=== PATIENT | female | born 1975 | race Caucasian/White ===

== ENCOUNTER 2016-08-07 | Outpatient (CLI) | END 2016-08-07 01:32 | disposition critical access hospital (66) | CPT/HCPCS: A0425; A0429 ==

== ENCOUNTER 2016-08-07 01:51 | Emergency (ER) | payer BC, OTHER ==
[2016-08-07] MEDS ORDERED: KETOROLAC 60 MG/2 ML VIAL IM STA (03:42)
[2016-08-07] MEDS ORDERED: KETOROLAC 60 MG/2 ML VIAL ONE (03:46)
== END 2016-08-07 06:22 | disposition home or self-care (01) ==
DX: M54.5 Low back pain (principal)

== ENCOUNTER 2017-01-01 13:59 | Emergency (ER) | payer OTHER ==
--- NOTE | 2017-01-01 15:45 | ED Physician Documentation ---
PD HPI ALTERED MENTAL STATUS - Stated complaint Stated Complaint: WEAKNESS/DIZZY/NAUSEA - Chief complaint Chief Complaint: General - History obtained from History obtained from: Patient - History of Present Illness Timing - onset: How many months ago (1-2) Timing - duration: Months Timing - details: Gradual onset, Waxing and waning Quality / character: Other (feeling lightheaded at times, trouble concentrating. General malaise.) Associated symptoms: Headache (intermittently for couple of weeks, mostly frontal.). No: Fever Contributing factors: No: Anticoagulated, Diabetic, Recent med change (does not take any regularly, just supplements of regular dose vitamins. Is finishing her vitamins still.), Recent illness, Recent injury Basline status: Alert and oriented X 3, Ambulatory Similar symptoms before: Has not had sx before Review of Systems Constitutional: reports: Myalgias, Fatigue. denies: Fever, Chills Nose: reports: Sinus pressure / pain (frontal area). denies: Rhinorrhea / runny nose, Congestion Throat: denies: Sore throat, Swollen tonsils Cardiac: denies: Chest pain / pressure, Palpitations Respiratory: denies: Dyspnea, Cough, Wheezing GI: reports: Nausea. denies: Abdominal Pain, Vomiting, Diarrhea : denies: Dysuria, Frequency Skin: denies: Rash, Lesions Neurologic: reports: Generalized weakness, Numbness (intermittent tingling in both arms/hands. Notes decreased sense of taste and smell.), Headache. denies: Focal weakness, Syncope, Head injury Psychiatric: denies: Depressed, Anxiety, Insomnia Endocrine: denies: Weight loss, Weight gain Immunocompromised: denies: Immunocompromised PD PAST MEDICAL HISTORY - Past Medical History Cardiovascular: None Respiratory: None Neuro: None Endocrine/Autoimmune: None - Past Surgical History Past Surgical History: No - Present Medications Home Medications: Ambulatory Orders Medication Instructions Recorded Confirmed Ondansetron HCl [Zofran] 4 mg PO Q6H PRN #20 tablet 01/01/17 - Allergies Allergies/Adverse Reactions: Allergies Allergy/AdvReac Type Severity Reaction Status Date / Time Penicillins AdvReac Mild Rash Verified 01/01/17 14:05 - Social History Does the pt smoke?: No Smoking Status: Never smoker Does the pt drink ETOH?: Yes Does the pt have substance abuse?: No - Immunizations Immunizations are current?: Yes PD ED PE NORMAL - Vitals Vital signs reviewed: Yes - General General: Alert and oriented X 3, No acute distress, Well developed/nourished - HEENT HEENT: Atraumatic, PERRL, EOMI, Ears normal, Pharynx benign - Neck Neck: Supple, no meningeal sign, No adenopathy - Cardiac Cardiac: RRR, No murmur - Respiratory Respiratory: Clear bilaterally - Abdomen Abdomen: Soft, Non tender - Female Female : Deferred - Rectal Rectal: Deferred - Back Back: No CVA TTP - Derm Derm: Normal color, Warm and dry, No rash - Extremities Extremities: No tenderness to palpate, Normal ROM s pain, No edema, No calf tenderness / cord - Neuro Neuro: Alert and oriented X 3, rubber compounder formulator 2-12 intact, No motor deficit, No sensory deficit, Normal speech, Other - Psych Psych: Normal mood, Normal affect Results - Vitals Vitals: Vital Signs - 24 hr 01/01/17 01/01/17 14:02 16:20 Temperature 36.5 C Heart Rate 86 68 Respiratory 18 18 Rate Blood Pressure 121/77 130/83 H O2 Saturation 99 100 Oxygen O2 Source Room air - Labs Labs: Laboratory Tests 01/01/17 01/01/17 01/01/17 14:10 16:55 16:55 WBC 5.2 RBC 4.30 Hgb 13.4 Hct 39.3 MCV 91.4 MCH 31.2 H MCHC 34.1 RDW 12.7 Plt Count 170 MPV 7.7 L Neut # 3.3 Lymph # 1.5 [place] # 0.3 Eos # 0.1 Baso # 0.1 Absolute Nucleated RBC 0.00 Nucleated RBCs 0.0 ESR Sodium 140 Potassium 3.6 Chloride 105 Carbon Dioxide 27 Anion Gap 8.0 BUN 13 Creatinine 0.8 Estimated GFR (MDRD) 80 L Glucose 101 H Calcium 9.3 Magnesium 1.8 Total Bilirubin 0.9 AST 21 ALT 16 Alkaline Phosphatase 47 C-Reactive Protein < 1.0 Total Protein 6.8 Albumin 4.9 Globulin 1.9 L Albumin/Globulin Ratio 2.6 H Lipase 37 TSH Urine Color LIGHT YELLOW Urine Clarity CLEAR Urine pH 6.0 Ur Specific [place] <=1.005 Urine Protein NEGATIVE Urine Glucose (UA) NEGATIVE Urine Ketones NEGATIVE Urine Occult Blood NEGATIVE Urine Nitrite NEGATIVE Urine Bilirubin NEGATIVE Urine Urobilinogen 0.2 (NORMAL) Ur Leukocyte Esterase NEGATIVE Ur Microscopic Review NOT INDICATED Urine Culture Comments NOT INDICATED Urine HCG, Qual NEGATIVE 01/01/17 01/01/17 16:55 16:55 WBC RBC Hgb Hct MCV MCH MCHC RDW Plt Count MPV Neut # Lymph # [place] # Eos # Baso # Absolute Nucleated RBC Nucleated RBCs ESR 1 Sodium Potassium Chloride Carbon Dioxide Anion Gap BUN Creatinine Estimated GFR (MDRD) Glucose Calcium Magnesium Total Bilirubin AST ALT Alkaline Phosphatase C-Reactive Protein Total Protein Albumin Globulin Albumin/Globulin Ratio Lipase TSH 1.34 Urine Color Urine Clarity Urine pH Ur Specific [place] Urine Protein Urine Glucose (UA) Urine Ketones Urine Occult Blood Urine Nitrite Urine Bilirubin Urine Urobilinogen Ur Leukocyte Esterase Ur Microscopic Review Urine Culture Comments Urine HCG, Qual - Rads (name of study) head CT Radiology: Prelim report reviewed (no acute process) PD MEDICAL DECISION MAKING - ED course Complexity details: reviewed results, considered differential (not sure cause of symptoms. She is well post- over a year, so onset of depression would seem less likely. Has 4 kids at home, so tired makes sense, but has dealt with kids awhile and thus just fatigue would not be as likely. ), d/w patient, d/w family (spouse) Departure - Departure Disposition: Home, Self Care Clinical Impression: Numbness and tingling Fatigue Qualifiers: Fatigue type: unspecified Qualified Code(s): R53.83 - Other fatigue Condition: Stable Record reviewed to determine appropriate education?: Yes Instructions: ED Weakness [facility]O Prescriptions: Ondansetron HCl [Zofran] 4 mg PO Q6H PRN #20 tablet PRN Reason: Nausea / Vomiting Comments: Your basic labs are looking good (I just don't have the thyroid test back yet). Head scan is normal too. I don't have obvious answer to the symptoms as yet, but several things are off the list, so to speak. Follow up PMD next week. Zofran if needed for nausea. Discharge Date/Time: 01/01/17 17:46
[2017-01-01 16:21] VITALS: BP 130/83
[2017-01-01 16:36] LABS: BILIRUBIN,URINE NEGATIVE (NEGATIVE)
[2017-01-01 16:38] LABS: HCG UR QUAL NEGATIVE; UA CHARGE (STRIP ONLY) YES; UR CULTURE IF IND NOT INDICATED
[2017-01-01 17:10] LABS: BASOPHILS # (AUTO) 0.1 10^3/uL (0.0-0.1); BASOPHILS % (AUTO) 1.2 %; EOSINOPHILS # (AUTO) 0.1 10^3/uL (0.0-0.7); HCT - HEMATOCRIT 39.3 % (37.0-47.0); HGB - HEMOGLOBIN 13.4 g/dL (12.0-16.0); LYMPHOCYTES # (AUTO) 1.5 10^3/uL (1.5-3.5); LYMPHOCYTES % (AUTO) 27.7 %; MEAN CORPUSCULAR HEMOGLOBIN 31.2 pg (27.0-31.0); MEAN CORPUSCULAR HGB CONC 34.1 g/dL (32.0-36.0); MEAN CORPUSCULAR VOLUME 91.4 fL (81.0-99.0); MEAN PLATELET VOLUME 7.7 fL (7.9-10.8); MONOCYTES # (AUTO) 0.3 10^3/uL (0.0-1.0); MONOCYTES % (AUTO) 5.2 %; NEUTROPHILS # (AUTO) 3.3 10^3/uL (1.5-6.6); NEUTROPHILS % (AUTO) 63.9 %; RED CELL DISTRIBUTION WIDTH 12.7 % (12.0-15.0); UNCORRECTED WHITE BLOOD COUNT 5.2 x10^3/uL; WHITE BLOOD COUNT 5.2 x10^3/uL (4.8-10.8)
--- NOTE | 2017-01-01 17:10 | CT Preliminary Report ---
Exam: CT Head W/O IMPRESSION: Normal head CT. [facility] SITE ID: [id number]
--- NOTE | 2017-01-01 17:12 | CT Report ---
EXAM: CT HEAD EXAM DATE: 01/01/2017 04:48 PM. CLINICAL HISTORY: Headache and visual changes/numbness. COMPARISON: None. TECHNIQUE: Multiaxial CT images were obtained from the foramen magnum to the vertex. IV contrast: Non e. Reformats: Coronal. In accordance with CT protocol optimization, one or more of the following dose reduction techniques w ere utilized for this exam: automated exposure control, adjustment of mA and/or KV based on patient s ize, or use of iterative reconstructive technique. FINDINGS: Parenchyma: No intraparenchymal hemorrhage. No evidence of mass, midline shift, or CT findings of inf arction. Harmon-white differentiation is distinct. Extraaxial Spaces: Normal for age. No subdural or epidural collections identified. Ventricles: Normal in size and position. Sinuses: Imaged paranasal sinuses, orbits, and mastoids show no significant abnormality. Bones: No evidence of fracture or calvarial defect. Other: None. IMPRESSION: Normal head CT. [facility] Referring Provider Line: [phone] SITE ID: [id number]
[2017-01-01 17:27] LABS: ALBUMIN/GLOBULIN RATIO 2.6 (1.0-2.2); BILIRUBIN,TOTAL 0.9 mg/dL (0.2-1.0); BUN - BLOOD UREA NITROGEN 13 mg/dL (6-20); CALCIUM 9.3 mg/dL (8.5-10.3); CARBON DIOXIDE - CO2 27 mmol/L (21-32); CHLORIDE 105 mmol/L (101-111); CREATININE 0.8 mg/dL (0.4-1.0); GFR - MDRD 80 (>89); GLUCOSE 101 mg/dL (70-100); LIPASE 37 U/L (22-51); MAGNESIUM 1.8 mg/dL (1.7-2.8); POTASSIUM 3.6 mmol/L (3.5-5.0); SODIUM 140 mmol/L (135-145); TOTAL PROTEIN 6.8 g/dL (6.7-8.2)
== END 2017-01-01 17:46 | disposition home or self-care (01) ==
LOC: ED 13:59
DX: R20.0 Anesthesia of skin (principal); R20.2 Paresthesia of skin; R53.83 Other fatigue; R51 Headache; R11.0 Nausea
CPT/HCPCS: 36415; 70450; 80053; 81001; 81003; 81025; 83690; 83735; 84443; 85025; 85651; 86140; 87086; 99283

== ENCOUNTER 2017-01-15 09:21 | Outpatient (CLI) | payer OTHER ==
--- NOTE | 2017-01-15 10:38 | MRI Report ---
EXAM: MRI BRAIN WITHOUT CONTRAST EXAM DATE: 01/15/2017 10:10 AM. CLINICAL HISTORY: NUMBNESS AND TINGLING IN LEFT ARM. COMPARISON: CT head 01/01/2017. TECHNIQUE: Multiplanar, multisequence T1-weighted and fluid-sensitive MR sequences of the brain were performed. Sequences optimized for routine evaluation. Other: None. IV Contrast: None. FINDINGS: Brain Volume: Normal for age. Parenchyma/Dura: No masses, infarcts, or hemorrhage. No white matter lesions identified. Ventricles/Cisterns: Normal. No hydrocephalus. Sinuses: Mild mucosal of thickening of the ethmoid air cells. Remaining visualized paranasal sinuses, mastoid air cells, middle ear cavities are clear. Orbits: Unremarkable Bones: Normal. Other: Visualized major intracranial flow voids are maintained IMPRESSION: 1. No acute infarct, intracranial hemorrhage, mass, or hydrocephalus. 2. No definite white matter lesions seen. [facility] Referring Provider Line: [phone] SITE ID: [id number]
== END 2017-01-15 09:22 | disposition home or self-care (01) ==
LOC: DI 09:21
PROVIDERS: ATTEND Family Medicine
DX: R20.0 Anesthesia of skin (principal)
CPT/HCPCS: 70551

== ENCOUNTER 2017-06-10 13:20 | Outpatient (CLI) | payer BC, OTHER ==
[2017-06-12 12:01] LABS: TEST RESULT REPORT
== END 2017-06-10 13:21 | disposition home or self-care (01) ==
LOC: LAB.WCP 13:20
PROVIDERS: ATTEND Family Medicine
DX: K11.20 Sialoadenitis, unspecified (principal)
CPT/HCPCS: 36415; 81599; 86235; 86735

== ENCOUNTER 2017-10-30 12:57 | Outpatient (CLI) | payer BC ==
--- NOTE | 2017-10-30 13:49 | Mammography Report ---
DIAGNOSTIC BILATERAL MAMMOGRAM: 10/30/2017 CLINICAL INDICATION: Left lateral breast pain. TECHNIQUE: Bilateral CC, laterally exaggerated CC, MLO, left true lateral views. The patient described the pain as diffuse throughout the lateral half of the breast, so no marker was placed. This is the patient's baseline examination. FINDINGS: The breasts demonstrate heterogeneously dense fibroglandular parenchyma bilaterally. Coarse and punctate, typically benign calcifications are present. No suspicious masses, clustered microcalcifications, or regions of architectural distortion are identified. IMPRESSION: BENIGN FINDINGS. RECOMMENDATION: Routine annual screening unless otherwise clinically indicated. BIRADS CATEGORY 2 - BENIGN FINDINGS. STANDARD QUALIFYING STATEMENTS: 1. This examination was reviewed with the aid of Computer-Aided Detection (CAD). 2. A negative or benign imaging report should not delay biopsy if clinically suspicious findings are present. Consider surgical consultation if warranted. More than 5% of cancers are not identified by imaging. 3. Dense breasts may obscure an underlying neoplasm. TD: 10/30/2017 13:48
== END 2017-10-30 12:58 | disposition home or self-care (01) ==
LOC: DI 12:57
PROVIDERS: ATTEND Obstetrics & Gynecology
DX: N64.4 Mastodynia (principal)
CPT/HCPCS: 77066

== ENCOUNTER 2018-01-22 08:00 | Outpatient (CLI) | payer BC | END 2018-01-22 08:01 | disposition home or self-care (01) | LOC: LAB.R 08:00 | PROVIDERS: ATTEND Obstetrics & Gynecology | DX: Z11.3 Encounter for screening for infections with a predominantly sexual mode of transmission (principal) | CPT/HCPCS: 87491; 87591 ==

== ENCOUNTER 2018-08-25 08:00 | Outpatient (CLI) | payer BC | END 2018-08-25 23:59 | disposition home or self-care (01) | LOC: LAB.R 08:00 | PROVIDERS: ATTEND Obstetrics & Gynecology | DX: R10.2 Pelvic and perineal pain (principal); N92.4 Excessive bleeding in the premenopausal period | CPT/HCPCS: 87491; 87591 ==

== ENCOUNTER 2019-01-20 11:28 | Outpatient (CLI) | payer BC ==
[2019-01-20 18:35] LABS: BASOPHILS # (AUTO) 0.1 10^3/uL (0.0-0.1); BASOPHILS % (AUTO) 1.4 %; EOSINOPHILS # (AUTO) 0.1 10^3/uL (0.0-0.7); EOSINOPHILS % (AUTO) 2.8 %; HGB - HEMOGLOBIN 11.9 g/dL (12.0-16.0); LYMPHOCYTES # (AUTO) 1.2 10^3/uL (1.5-3.5); LYMPHOCYTES % (AUTO) 33.6 %; MEAN CORPUSCULAR HGB CONC 31.3 g/dL (32.0-36.0); MEAN CORPUSCULAR VOLUME 95.7 fL (81.0-99.0); MEAN PLATELET VOLUME 10.6 fL (7.9-10.8); MONOCYTES # (AUTO) 0.3 10^3/uL (0.0-1.0); MONOCYTES % (AUTO) 8.1 %; NEUTROPHILS # (AUTO) 1.9 10^3/uL (1.5-6.6); NEUTROPHILS % (AUTO) 53.8 %; PLT - PLATELET COUNT 207 10^3/uL (130-450); RED BLOOD COUNT 3.97 10^6/uL (4.20-5.40); RED CELL DISTRIBUTION WIDTH 12.3 % (12.0-15.0); WHITE BLOOD COUNT 3.6 x10^3/uL (4.8-10.8)
[2019-01-20 18:54] LABS: ALBUMIN 4.2 g/dL (3.2-5.5); ALBUMIN/GLOBULIN RATIO 1.8 (1.0-2.2); BILIRUBIN,TOTAL 0.8 mg/dL (0.2-1.0); CALCIUM 9.5 mg/dL (8.5-10.3); CREATININE 0.9 mg/dL (0.4-1.0); TOTAL PROTEIN 6.5 g/dL (6.7-8.2)
[2019-01-20 18:56] LABS: HB2 TOTAL 12.2 g/dL; HEMOGLOBIN A1C 0.45 g/dL; HEMOGLOBIN A1C % 5.5 % (4.6-6.2)
== END 2019-01-20 11:29 | disposition home or self-care (01) ==
LOC: LAB.WCP 11:28
PROVIDERS: ATTEND Physician Assistant
DX: Z00.00 Encounter for general adult medical examination without abnormal findings (principal); R20.2 Paresthesia of skin
CPT/HCPCS: 36415; 80053; 82607; 83036; 84443; 85025

== ENCOUNTER 2019-01-21 18:00 | Outpatient (CLI) | payer BC ==
--- NOTE | 2019-01-22 06:29 | Ultrasound Report ---
Reason: RAYNAUD'S SYNDROME Procedure Date: 01/21/2019 Accession Number: [id number] / [id number] Procedure: US - Ankle Brachial Index CPT Code: FULL RESULT: EXAM: BILATERAL ANKLE/BRACHIAL INDEX EXAM DATE: 01/21/2019 06:53 PM. CLINICAL HISTORY: RAYNAUD'S SYNDROME. COMPARISON: None. TECHNIQUE: A blood pressure cuff and pulse volume recording Doppler ultrasound was used to evaluate the arterial pressures in the arms and ankle. No images were acquired. FINDINGS: Right brachial pressure 96. Left brachial pressure 104. Right ankle pressure 121. Left ankle pressure 117. IMPRESSION: 1. Right ankle/brachial index: 1.2. 2. Left ankle/brachial index: 1.1. ANKLE/BRACHIAL INDEX REFERENCE STANDARDS 1.0-1.4: Normal 0.90-0.99: Borderline < 0.9: Abnormal [facility]
== END 2019-01-21 18:01 | disposition home or self-care (01) ==
LOC: DI 18:00
PROVIDERS: ATTEND Physician Assistant
DX: I73.00 Raynaud's syndrome without gangrene (principal)
CPT/HCPCS: 93922

== ENCOUNTER 2019-03-31 08:30 | Outpatient (CLI) | payer BC ==
--- NOTE | 2019-03-31 13:56 | Ultrasound Report ---
Reason: ABDOMINAL PAIN, RLQ Procedure Date: 03/31/2019 Accession Number: [id number] / [id number] Procedure: US - Abdomen Complete CPT Code: FULL RESULT: EXAM: ABDOMEN ULTRASOUND EXAM DATE: 03/31/2019 09:18 AM. CLINICAL HISTORY: Right lower quadrant abdominal pain. COMPARISON: None. TECHNIQUE: Real-time scanning was performed with static images obtained. FINDINGS: Liver: Liver is mildly echogenic diffusely. No evidence for cirrhosis or mass lesion. 13.6 cm. Main portal vein flow: Hepatopetal. Gallbladder: Normal. No stones, wall thickening, or sonographic Chappell's sign. Biliary System: Common bile duct measures 2 mm. No intrahepatic or extrahepatic ductal dilatation. Pancreas: Visualized portion is unremarkable. Kidneys: Right: 9.9 cm longitudinally. Normal. No contour-deforming mass, stones, or hydronephrosis. Left: 10.7 cm longitudinally. Normal. No contour-deforming mass, stones, or hydronephrosis. Spleen: 9.9 cm. Normal in size and echotexture. Aorta and Inferior Vena Cava: Unremarkable. Other: None. IMPRESSION: 1. Mild fatty infiltrated liver. 2. New etiology for abdominal pain identified. Normal gallbladder. [facility]
== END 2019-03-31 08:31 | disposition home or self-care (01) ==
LOC: DI 08:30
PROVIDERS: ATTEND Surgery
DX: R10.31 Right lower quadrant pain (principal); K76.0 Fatty (change of) liver, not elsewhere classified
CPT/HCPCS: 76700

== ENCOUNTER 2019-09-09 07:00 | Outpatient (CLI) | payer BC, OTHER ==
[2019-09-09 12:34] LABS: BASOPHILS % (AUTO) 1.3 %; EOSINOPHILS # (AUTO) 0.1 10^3/uL (0.0-0.7); EOSINOPHILS % (AUTO) 2.9 %; HGB - HEMOGLOBIN 11.5 g/dL (12.0-16.0); LYMPHOCYTES # (AUTO) 1.5 10^3/uL (1.5-3.5); LYMPHOCYTES % (AUTO) 47.3 %; MEAN CORPUSCULAR HEMOGLOBIN 29.9 pg (27.0-31.0); MEAN CORPUSCULAR HGB CONC 31.3 g/dL (32.0-36.0); MEAN CORPUSCULAR VOLUME 95.3 fL (81.0-99.0); MEAN PLATELET VOLUME 10.4 fL (7.9-10.8); MONOCYTES # (AUTO) 0.3 10^3/uL (0.0-1.0); MONOCYTES % (AUTO) 9.3 %; NEUTROPHILS # (AUTO) 1.2 10^3/uL (1.5-6.6); NEUTROPHILS % (AUTO) 39.2 %; PLT - PLATELET COUNT 160 10^3/uL (130-450); RED BLOOD COUNT 3.85 10^6/uL (4.20-5.40); RED CELL DISTRIBUTION WIDTH 12.5 % (12.0-15.0); WHITE BLOOD COUNT 3.1 x10^3/uL (4.8-10.8)
[2019-09-09 12:59] LABS: ALBUMIN 3.9 g/dL (3.2-5.5); ALBUMIN/GLOBULIN RATIO 1.8 (1.0-2.2); ALKALINE PHOSPHATASE 32 IU/L (42-121); ALT ALANINE AMINOTRANSFERASE 14 IU/L (10-60); AST ASPARTATE AMINOTRANSFERASE 18 IU/L (10-42); BILIRUBIN,TOTAL 0.6 mg/dL (0.2-1.0); BUN - BLOOD UREA NITROGEN 10 mg/dL (6-20); CALCIUM 8.9 mg/dL (8.5-10.3); CARBON DIOXIDE - CO2 27 mmol/L (21-32); CHLORIDE 104 mmol/L (101-111); CHOLESTEROL 264 mg/dL; CREATININE 0.9 mg/dL (0.4-1.0); GFR - MDRD 69 (>89); GLUCOSE 94 mg/dL (70-100); HDL CHOLESTEROL 89 mg/dL; SODIUM 139 mmol/L (135-145); TOTAL PROTEIN 6.1 g/dL (6.7-8.2)
== END 2019-09-09 23:59 | disposition home or self-care (01) ==
LOC: LAB.WCP 07:00
PROVIDERS: ATTEND Family Medicine
DX: Z00.00 Encounter for general adult medical examination without abnormal findings (principal)
CPT/HCPCS: 36415; 80053; 80061; 83721; 84443; 85025

== ENCOUNTER 2019-10-12 08:14 | Outpatient (CLI) | payer OTHER ==
--- NOTE | 2019-10-12 16:00 | Mammography Report ---
Reason: ROUTINE MAMMO Procedure Date: 10/12/2019 Accession Number: [id number] / [id number] Procedure: MGN - Screening Mammo w/Paul CPT Code: Final Report FULL RESULT: EXAM: Screening Mammo w/Paul DATE: 10/12/2019 8:51 AM CLINICAL HISTORY: Screening encounter. History of late childbearing. TECHNIQUE: (B) - Bilateral CC, laterally exaggerated CC, MLO views were obtained. COMPARISON: 10/30/2017. PARENCHYMAL PATTERN: (D) - The breast(s) demonstrate(s) heterogeneously dense fibroglandular parenchyma. FINDINGS: There are no suspicious masses, calcifications, or areas of distortion. IMPRESSION: Negative examination. BI-RADS category 1. RECOMMENDATION: (ANNUAL) - Recommend routine annual screening mammography. BI-RADS CATEGORY: (1) - Negative. STANDARD QUALIFYING STATEMENTS: 1. This examination was not reviewed with the aid of Computer-Aided Detection (CAD). 2. A negative or benign imaging report should not preclude biopsy if clinically suspicious findings are present. 3. Dense breasts may obscure an underlying neoplasm. 4. This examination was reviewed with the aid of 3D breast imaging (tomosynthesis).
== END 2019-10-12 08:15 | disposition home or self-care (01) ==
LOC: DI.N 08:14
DX: Z12.31 Encounter for screening mammogram for malignant neoplasm of breast (principal)
CPT/HCPCS: 77063; 77067

== ENCOUNTER 2019-12-09 08:00 | Outpatient (CLI) | payer OTHER ==
[2019-12-09 13:12] LABS: BASOPHILS # (AUTO) 0.1 10^3/uL (0.0-0.1); BASOPHILS % (AUTO) 1.7 %; EOSINOPHILS # (AUTO) 0.1 10^3/uL (0.0-0.7); HGB - HEMOGLOBIN 12.5 g/dL (12.0-16.0); LYMPHOCYTES # (AUTO) 1.4 10^3/uL (1.5-3.5); LYMPHOCYTES % (AUTO) 45.5 %; MEAN CORPUSCULAR HEMOGLOBIN 29.8 pg (27.0-31.0); MEAN CORPUSCULAR HGB CONC 31.8 g/dL (32.0-36.0); MEAN CORPUSCULAR VOLUME 93.8 fL (81.0-99.0); MEAN PLATELET VOLUME 10.7 fL (7.9-10.8); MONOCYTES # (AUTO) 0.4 10^3/uL (0.0-1.0); NEUTROPHILS # (AUTO) 1.1 10^3/uL (1.5-6.6); NEUTROPHILS % (AUTO) 37.8 %; PLT - PLATELET COUNT 170 10^3/uL (130-450); RED BLOOD COUNT 4.19 10^6/uL (4.20-5.40); RED CELL DISTRIBUTION WIDTH 12.4 % (12.0-15.0)
== END 2019-12-09 23:59 | disposition home or self-care (01) ==
LOC: LAB.WCP 08:00
PROVIDERS: ATTEND Family Medicine
DX: D72.819 Decreased white blood cell count, unspecified (principal)
CPT/HCPCS: 36415; 85025

== ENCOUNTER 2020-08-21 07:22 | Outpatient (CLI) | payer OTHER ==
[2020-08-21 13:20] LABS: BASOPHILS # (AUTO) 0.1 10^3/uL (0.0-0.1); BASOPHILS % (AUTO) 1.9 %; EOSINOPHILS # (AUTO) 0.1 10^3/uL (0.0-0.7); EOSINOPHILS % (AUTO) 2.9 %; HGB - HEMOGLOBIN 11.8 g/dL (12.0-16.0); LYMPHOCYTES # (AUTO) 1.5 10^3/uL (1.5-3.5); LYMPHOCYTES % (AUTO) 46.8 %; MEAN CORPUSCULAR HEMOGLOBIN 28.9 pg (27.0-31.0); MEAN CORPUSCULAR HGB CONC 32.1 g/dL (32.0-36.0); MEAN PLATELET VOLUME 10.3 fL (7.9-10.8); MONOCYTES # (AUTO) 0.4 10^3/uL (0.0-1.0); MONOCYTES % (AUTO) 12.9 %; NEUTROPHILS # (AUTO) 1.1 10^3/uL (1.5-6.6); NEUTROPHILS % (AUTO) 35.5 %; PLT - PLATELET COUNT 165 10^3/uL (130-450); RED BLOOD COUNT 4.09 10^6/uL (4.20-5.40); RED CELL DISTRIBUTION WIDTH 12.8 % (12.0-15.0); WHITE BLOOD COUNT 3.1 x10^3/uL (4.8-10.8)
== END 2020-08-21 23:59 | disposition home or self-care (01) ==
LOC: LAB.WCP 07:22
PROVIDERS: ATTEND Physician Assistant Medical
DX: D72.819 Decreased white blood cell count, unspecified (principal)
CPT/HCPCS: 85025

== ENCOUNTER 2020-09-06 13:20 | Emergency (ER) | payer OTHER ==
[2020-09-06 13:27] VITALS: BP 124/66
--- NOTE | 2020-09-06 13:32 | ED Physician Documentation ---
PD HPI UPPER EXT INJURY - Stated complaint Stated Complaint: L HAND LAC - Chief complaint Chief Complaint: Laceration - History obtained from History obtained from: Patient - History of Present Illness Location: Left, Finger (thumb tip) Type of injury: Laceration (cutting food for lunch at home and cut tip of thumb. Bleeding not stopping despite direct pressure.) Where injury occurred: Home Timing - onset: Today Timing - details: Abrupt onset Worsened by: Palpating Associated symptoms: No: Weakness, Numbness, Tingling Recently seen: Not recently seen Review of Systems Constitutional: denies: Fever Nose: denies: Rhinorrhea / runny nose, Congestion Throat: denies: Sore throat Respiratory: denies: Cough Neurologic: denies: Focal weakness, Numbness PD PAST MEDICAL HISTORY - Past Medical History Cardiovascular: None Respiratory: None Endocrine/Autoimmune: None - Past Surgical History Past Surgical History: No - Present Medications Home Medications: Ambulatory Orders Medication Instructions Recorded Confirmed No Known Home Medications 09/06/20 09/06/20 - Allergies Allergies/Adverse Reactions: Allergies Allergy/AdvReac Type Severity Reaction Status Date / Time Penicillins AdvReac Mild Rash Verified 09/06/20 13:27 - Social History Does the pt smoke?: No Smoking Status: Never smoker Does the pt drink ETOH?: Yes Does the pt have substance abuse?: No - Immunizations Immunizations are current?: Yes PD ED PE NORMAL - Vitals Vital signs reviewed: Yes - General General: Alert and oriented X 3, No acute distress, Well developed/nourished - Derm Derm: Normal color, Warm and dry - Extremities Extremities: Other (left thumb with 1.5 cm laceration at tip palmar fat pad, not into nailbed. No FB. Mild ongoing bleeding without it being held. ) - Neuro Neuro: No motor deficit, No sensory deficit Results - Vitals Vitals: Vital Signs - 24 hr 09/06/20 13:25 Temperature 36.4 C L Heart Rate 72 Respiratory 16 Rate Blood Pressure 124/66 O2 Saturation 95 Oxygen O2 Source Room air Procedures - Laceration (location) left thumb tip Length in cm: 1.5 Wound type: Linear Neurovascular status: Sensory intact, Motor intact, Vascular intact Anesthesia: Lidocaine 2% with epi Wound preparation: Irrigated copiously NS, Wound explored, To the base. No: FB identified Skin layer closure: Nylon, Interrupted, Size #-0 - enter number (4), Sutures - enter # (5) Other: Patient tolerated well, No complications, Neurovascular intact, Dressing applied, Tetanus UTD PD MEDICAL DECISION MAKING - ED course Complexity details: considered differential, d/w patient Departure - Departure Disposition: 01 Home, Self Care Clinical Impression: Thumb laceration Qualifiers: Encounter type: initial encounter Damage to nail status: without damage Foreign body presence: without foreign body Laterality: left Qualified Code(s): S61.012A - Laceration without foreign body of left thumb without damage to nail, initial encounter Condition: Stable Record reviewed to determine appropriate education?: Yes Instructions: ED Laceration Hand Follow-Up: Gemma Rousseau PA-C [Primary Care Provider] - Comments: It is okay to wash and shower. Clean off the wound twice a day with soap and water, or peroxide and water. Apply some antibiotic ointment to it to keep it moist. Also to watch for signs of infection such as purulence, redness or increasing pain. Return to your primary care or the ER at the specified time for suture removal. Suture removal 7-day days. Discharge Date/Time: 09/06/20 14:20
== END 2020-09-06 14:20 | disposition home or self-care (01) ==
LOC: ED 13:20
DX: S61.012A Laceration without foreign body of left thumb without damage to nail, initial encounter (principal); W26.0XXA Contact with knife, initial encounter; Y93.G1 Activity, food preparation and clean up; Y92.009 Unspecified place in unspecified non-institutional (private) residence as the place of occurrence of the external cause
CPT/HCPCS: 12001; 99281; 99282

== ENCOUNTER 2020-12-26 08:55 | Outpatient (CLI) | payer OTHER ==
--- OUTSIDE RECORDS SUMMARY | 2020-11-07 15:58 | EXTERNAL MEDICAL SUMMARY RPT | Continuity of Care Document ---
:1975 Demographics Phone Unavailable Preferred Language Unknown Marital Status Unknown Yazdanism Affiliation Unknown Race Unknown Ethnic Group Unknown Author Organization [facility] Address [address] [place] [address] Phone Social History date description facility [phone]
--- NOTE | 2020-12-28 07:04 | Mammography Report ---
BILATERAL DIGITAL SCREENING MAMMOGRAM 3D/2D: 12/26/2020 CLINICAL: Routine screening. Comparison: 10/12/2019, 10/30/2017 The tissue of both breasts is heterogeneously dense. This may lower the sensitivity of mammography. No significant masses, calcifications, or other findings are seen in either breast. IMPRESSION: NEGATIVE There is no mammographic evidence of malignancy. A 1 year screening mammogram is recommended. This exam was interpreted at Station ID: [id number]. NOTE: For mammograms, a report in lay terms will be sent to the patient. Approximately 15% of breast malignancies will not be visualized mammographically. In the management of a palpable breast mass, a negative mammogram must not discourage biopsy of a clinically suspicious lesion. Electronically Signed By: Terrell Edwards M.D. aty/:12/26/2020 10:26:53 ACR BI-RADS Category 1: Negative 3341F PARENCHYMAL PATTERN: (D) - The breast(s) demonstrate(s) heterogeneously dense fibroglandular parefra cali. BI-RADS CATEGORY: (1) - 1 RECOMMENDATION: (ANNUAL) - Recommend routine annual screening mammography. [id number] 1 year screening LATERALITY: (B)
== END 2020-12-26 08:56 | disposition home or self-care (01) ==
LOC: DI 08:55
DX: Z12.31 Encounter for screening mammogram for malignant neoplasm of breast (principal)

== ENCOUNTER → 2021-05-24 | Outpatient (CLI) | payer OTHER | LOC: LAB.N 08:00 | PROVIDERS: ATTEND Physician Assistant Medical | DX: R05.9 Cough, unspecified (principal); Z20.822 Contact with and (suspected) exposure to COVID-19 ==

== ENCOUNTER 2021-09-02 11:10 | Outpatient (CLI) | payer OTHER | END 2021-09-02 11:11 | disposition EMS.NT | LOC: EMS 11:10 | DX: U07.1 COVID-19 (principal) ==

== ENCOUNTER 2022-10-07 11:18 | Outpatient (CLI) | payer OTHER ==
--- NOTE | 2022-10-08 10:02 | Mammography Report ---
BILATERAL DIGITAL SCREENING MAMMOGRAM 3D/2D: 10/07/2022 CLINICAL: Routine screening. Comparison is made to exams dated: 12/26/2020 mammogram, 10/30/2017 mammogram, and 10/12/2019 mammogram - [facility]. Both breasts are heterogeneously dense, which may obscure small masses (category c / 51-75% glandular tissue). No significant masses, calcifications, or other findings are seen in either breast. There has been no significant interval change. IMPRESSION: NEGATIVE There is no mammographic evidence of malignancy. A 1 year screening mammogram is recommended. Based on Tyrer-Cuzick model (a risk assessment model), the patient's lifetime risk is 21.4% and her 1 0 year risk is 4.1%. If a patient has an elevated risk, a more comprehensive evaluation should be con sidered and/or a referral to a genetic counselor. The [place] [employer], [employer] [employer], and NCCN Guidelines advise the consideration of Breast MRI as an adjunct to screening mammog brayan in patients whose "Lifetime risk to develop breast cancer" is 20% or higher. This exam was interpreted at Station ID: [id number]. NOTE: For mammograms, a report in lay terms will be sent to the patient. Approximately 15% of breast malignancies will not be visualized mammographically. In the management of a palpable breast mass, a negative mammogram must not discourage biopsy of a clinically suspicious lesion. Electronically Signed By: Terrell Edwards M.D. atpetra/gordy:10/07/2022 17:14:33 letter sent: No_Letter ACR BI-RADS Category 1: Negative 3341F PARENCHYMAL PATTERN: (D) - The breast(s) demonstrate(s) heterogeneously dense fibroglandular parenchy ma. BI-RADS CATEGORY: (1) - 1 Mammogram [id number] 1 year screening LATERALITY: (B)
== END 2022-10-07 11:19 | disposition home or self-care (01) ==
LOC: DI.N 11:18
DX: Z12.31 Encounter for screening mammogram for malignant neoplasm of breast (principal)